=== PATIENT | female | born 1950 | race Asian ===

== ENCOUNTER 2023-02-24 19:41 | Observation (INO) ==
[2023-02-24] MEDS ORDERED: fentaNYL 100 mcg/2 ml 50 MCG/ML VIAL IV SLOW PU ONE ×2 (20:22→21:57)
[2023-02-24] MEDS ORDERED: Ondansetron 4 mg VIAL 2 MG/ML 2 ml VIAL IV ONE (20:22)
[2023-02-24 20:40] LABS: ABS Basophils 0.1 10^3/uL (0.0-0.1); ABS Eosinophils 0.2 10^3/uL (0.0-0.5); ABS Lymphocytes 2.7 10^3/uL (1.0-4.8); ABS Monocytes 0.8 10^3/uL (0.0-0.9); ABS Neutrophils 6.8 10^3/uL (1.5-7.6); ABS Nucleated RBC 0.01 10^3/ul; Eosinophil % 1.5 %; Hematocrit 36.5 % (35-45); Hemoglobin 12.7 g/dL (11.5-14.3); Lymphocyte % 25.4 %; Mean Corpuscular Hemoglobin 29.2 pg (27-33); Mean Corpuscular Hgb Conc 34.8 g/dL (31-36); Mean Corpuscular Volume 83.8 fL (80-97); Mean Platelet Volume 7.9 fL (7.5-11.2); Platelet Count 297 10^3/uL (150-450); Red Blood Count 4.35 10^6/uL (3.63-4.92); Red Cell Distribution Width 12.5 % (12-17); White Blood Count 10.5 10^3/uL (3.8-11.8)
[2023-02-24 20:48] LABS: INR 1.14 (0.88-1.18)
[2023-02-24 20:57] LABS: Albumin 4.3 g/dL (3.2-5.2); Albumin/Globulin Ratio 1.3 (1-3); Creatinine, Serum 0.66 mg/dL (0.51-0.95); Globulin 3.4 g/dL (2-4); Potassium 3.5 mmol/L (3.5-5.0); Total Bilirubin 0.7 mg/dL (0.2-1.0); Total Protein 7.7 g/dL (6.4-8.9)
[2023-02-24] MEDS ORDERED: Iohexol 350 (CONTRAST) 500 ML MDV IV ONE (21:37)
[2023-02-24 22:12] LABS: High Sensitivity Troponin 1 Hr 5 pg/mL (<15)
[2023-02-25] MEDS ORDERED: NS 0.9% 1000 ml BAG 1,000 ML IV ONE (00:21)
[2023-02-25] MEDS ORDERED: Ondansetron 4 mg VIAL 2 MG/ML 2 ml VIAL IV PRN (00:35)
[2023-02-25] MEDS ORDERED: Al Hydrox/Mg Hydrox/Simet LIQ 30 ML UDC PO PRN ×2 (00:35→03:05)
[2023-02-25] MEDS ORDERED: Enoxaparin 40 MG/0.4 ML SYR SUBCUT SCH (01:00)
[2023-02-25 01:21] LABS: Urine Appearance Clear; Urine Bilirubin Negative (Negative); Urine Blood Negative (Negative); Urine Color Straw; Urine Glucose Negative (Negative); Urine Ketones Negative (Negative); Urine Nitrite Negative (Negative); Urine Protein Negative (Negative); Urine Specific Gravity 1.016 (1.002-1.030); Urine Urobilinogen Negative (Negative)
[2023-02-25 01:34] LABS: Osmolality Serum 268 mOsm/kg (275-295); Urine Osmo 150 mOsm/kg (150-1150)
[2023-02-25 01:40] LABS: Magnesium 1.7 mg/dL (1.9-2.7)
[2023-02-25] MEDS ORDERED: Morphine 4 MG/ML VIAL (1 ml) IV PRN (01:58)
[2023-02-25] MEDS ORDERED: Naloxone Nasal Spray 4 MG/0.1 ML NASAL.SPR INTRANASAL PRN (01:59)
[2023-02-25] MEDS ORDERED: Ure-Na 15 GM POWD.PACK PO ONE (02:00)
[2023-02-25] MEDS ORDERED: Al Hydrox/Mg Hydrox/Simet LIQ 30 ML UDC PO ONE (02:01)
[2023-02-25] MEDS ORDERED: Magnesium Sulfate 2 gm BAG 2 GM/50 ML BAG IVPB ONE (02:38)
[2023-02-25] MEDS ORDERED: KCL 20 MEQ/100 ML IVPREMIX 20 MEQ/100 ML BAG IV ONE (02:38)
[2023-02-25 04:21] LABS: TSH Ultra Thyroid Stim Horm 2.34 mcIU/mL (0.34-5.60)
[2023-02-25 08:21] LABS: ABS Eosinophils 0.1 10^3/uL (0.0-0.5); ABS Lymphocytes 2.8 10^3/uL (1.0-4.8); ABS Monocytes 0.6 10^3/uL (0.0-0.9); ABS Neutrophils 3.5 10^3/uL (1.5-7.6); Hematocrit 33.9 % (35-45); Hemoglobin 11.7 g/dL (11.5-14.3); Lymphocyte % 39.8 %; Mean Corpuscular Hemoglobin 29.6 pg (27-33); Mean Corpuscular Hgb Conc 34.7 g/dL (31-36); Mean Corpuscular Volume 85.4 fL (80-97); Mean Platelet Volume 7.8 fL (7.5-11.2); Platelet Count 250 10^3/uL (150-450); Red Blood Count 3.96 10^6/uL (3.63-4.92); Red Cell Distribution Width 12.5 % (12-17)
[2023-02-25 08:37] LABS: Calcium 8.6 mg/dL (8.6-10.3); Creatinine, Serum 0.68 mg/dL (0.51-0.95); Magnesium 2.3 mg/dL (1.9-2.7); Potassium 3.9 mmol/L (3.5-5.0); eGFR CKD-EPI 91.3 (>60)
[2023-02-25] MEDS ORDERED: Polyethylene Glycol 3350 17 GM PACKET PO PRN (09:00)
[2023-02-25] MEDS ORDERED: Magnesium Hydroxide LIQ 30 ML UDC PO SCH (09:00)
[2023-02-25] MEDS ORDERED: Polyethylene Glycol 3350 17 GM PACKET PO SCH (09:00)
[2023-02-25] MEDS ORDERED: Senna TAB 8.6 mg TAB PO PRN (09:00)
[2023-02-25 10:05] VITALS: BP 132/73
== END 2023-02-25 12:30 | disposition home or self-care (01) ==
LOC: ED 19:41 → EDHOLD 19:41 → SUATTDRO 02-25 00:35 → MED 02-25 03:43
PROVIDERS: ADMIT Internal Medicine; ATTEND Internal Medicine